=== PATIENT | male | born 1975 | race Caucasian/White ===

== ENCOUNTER 2016-10-02 12:00 | Inpatient (IN) | payer OTHER ==
--- NOTE | ~2016-10-02 | HP ---
Unit #: [id number] #: [id number] Patient: CALIN MULLINS [id number] [place] [address] [id number] MR#: [id number] NAME: CALIN MULLINS. ROOM: P209 Age: 41 Sex: M Admission Date: 10/02/2016 : 1975 Attending Physician: Oj Knight M.D. Admitting Physician: Oj Knight M.D. Primary Care Physician: Primary Care Physician No HISTORY AND PHYSICAL HISTORY OF PRESENT ILLNESS Calin is a 41 year old admitted to [address] [place] [address] because of his continued drug use. He shoots heroin. He has had other admissions to this facility for the same. PAST MEDICAL HISTORY 1. Long history of polysubstance abuse to include IV heroin. 2. Hepatitis C. 3. Peripheral neuropathy. 4. History of compartment syndrome, bilateral legs, 2007. He has bilateral foot drop and is supposed to wear a brace on his left ankle. His right ankle is fused. PAST SURGICAL HISTORY 1. Fractured right lower leg with ORIF. 2. Bilateral lower extremity fasciotomy. ALLERGIES No known drug allergies. SOCIAL HISTORY He does not smoke or drink and admits to a long history of opioid abuse to include IV heroin. FAMILY HISTORY Medically noncontributory. REVIEW OF SYSTEMS CONSTITUTIONAL: No fever or chills. HEENT: Denies any sore throat, ear pain or runny nose. CARDIOVASCULAR: Denies chest pain, irregular heart rhythm or palpitations. CHEST: Denies shortness of breath or cough. No hemoptysis. GASTROINTESTINAL: Denies nausea, vomiting, diarrhea or chronic constipation. ENDOCRINE: Denies history of increased thirst or urination. No recent significant weight loss or gain. GENITOURINARY: Denies dysuria, frequency, or hematuria. SKIN: Denies any rashes. HEMATOLOGIC: Denies history of increased bleeding or bruising. MUSCULOSKELETAL: He reports chronic lower extremity pain. NEUROLOGIC: Denies problems with vision or speech. No frequent, severe headaches. No numbness, tingling or weakness in any extremities. Denies Unit #: [id number] #: [id number] Patient: CALIN MULLINS loss of bladder or bowel control. CURRENT MEDICATIONS Detox protocol PHYSICAL EXAMINATION GENERAL: Alert, well-nourished, in no apparent distress. VITAL SIGNS: Blood pressure 122/80, heart rate 80, respirations 16, temperature 98.6. WEIGHT: 165 pounds. HEIGHT: 5'10". SKIN: Warm and dry without rash or lesion. HEENT: Normocephalic. TMs not viewed. Oral and nasal passages clear. Conjunctivae clear. Pupils equal, round and reactive to light and accommodation. Extraocular movements intact. NECK: Supple without lymphadenopathy or thyromegaly. HEART: Regular rate and rhythm without murmur. LUNGS: Clear. ABDOMEN: Soft, nontender. : Not done. EXTREMITIES: No evidence of cyanosis, clubbing or edema. Moves all extremities but the right ankle is surgically fused. He has a left foot drop. He does not have a brace with him at this time. NEUROLOGICAL: Grossly within normal limits. Cranial Nerves: II: Visual idggs are intact. III, IV AND : Extraocular movements are intact. Pupils are equal, round and reactive to light. V: Facial sensation is grossly normal. VII: Facial movements and expression are normal. VIII: Auditory acuity grossly intact. IX, X: Uvula is midline. Phonation is normal. XI: Patient shrugs shoulders and turns head normally. XII: Tongue protrudes in the midline. Sensory and Motor Function: Sensory is grossly normal. Left lower extremity with foot drop. Right lower extremity, ankle is surgically fixed. Coordination: Gait is normal. Deep Tendon Reflexes: Intact. IMPRESSION Psychiatric admission RECOMMENDATIONS PSYCHIATRIC: Per psychiatrist. MEDICAL: I see no contraindications to participating in facility's activities. MEDICAL PROGNOSIS Good. MEDICAL CONDITION Stable. Dictated by... Racquel Sierra P.A.-C. for Lynsey Flores M.D. Unit #: [id number] #: [id number] Patient: CALIN MULLINS ADA/jason TD: 10/02/2016 22:01 JOB #: [id number] HISTORY AND PHYSICAL Page 1 of 1 X Racquel Sierra HISTORY AND PHYSICAL
--- NOTE | ~2016-10-02 | PA ---
Unit #: [id number] #: [id number] Patient: TORSTEN MULLINS [id number] [facility] [address] [place] [address] [id number] MR#: [id number] NAME: TORSTEN MULLINS. ROOM: P209 Age: 41 Sex: M Admission Date: 10/02/2016 : 1975 Date of Assessment: 10/03/2016 Attending Physician: Oj Knight M.D. Admitting Physician: Oj Knight M.D. Primary Care Physician: Primary Care Physician No PSYCHIATRIC ASSESSMENT DATE OF SERVICE 10/03/2016. INFORMANTS The patient reliable; OLOP, reliable. CHIEF COMPLAINT Heroin abuse. HISTORY OF PRESENT ILLNESS Mr. Mullins is a 41-year-old man with a history of heroin abuse and multiple injuries including neuropathy and compartment syndrome. He was unable to tolerate detox in the outpatient setting and was admitted for stabilization. PAST PSYCHIATRIC HISTORY Previous admission here in 2013 and he has been admitted to substance abuse programs while incarcerated. FAMILY PSYCHIATRIC HISTORY There is a vague family history of mental illness. SOCIAL HISTORY The patient is on disability for his long-term medical problems. He has had multiple surgeries and has had difficulty maintaining a residence and employment. PAST MEDICAL HISTORY Significant for compartment syndrome, hypertension, history of sleep apnea, history of coronary artery disease. MEDICATIONS Please see MAR. ALLERGIES No known medication allergies. SUBSTANCE ABUSE HISTORY As noted. The patient has extensive history of alcohol dependence and heroin abuse and shooting heroin at this time. MENTAL STATUS EXAMINATION The patient is a mildly disheveled man who appeared his stated age. He Unit #: [id number] #: [id number] Patient: TORSTEN MULLINS was cooperative with the examination. His speech was spontaneous and easily understood. His musculoskeletal examination was calm. His mood was irritable with a congruent affect. He was alert and fully oriented. His memory and concentration were fair. His thought processes were goal directed with no active psychosis. He denied suicidal ideation, intent, or plan. Denied homicidal ideation. Insight and judgment, fair. Fund of knowledge and abstraction, fair. ASSETS AND LIABILITIES Assets; the patient knows local resources and presents voluntarily for treatment. Liabilities; include difficulty maintaining sobriety and arousing erratic housing and income. ADMITTING DIAGNOSES AXIS I: Alcohol dependence; opioid dependence. AXIS II: No diagnosis. AXIS III: Hepatitis C, peripheral neuropathy, bilateral compartment syndrome. AXIS IV: AXIS V: PSYCHIATRIC PLAN The patient was admitted and placed on the alcohol detox protocol with the addition of Neurontin as needed and as taken at home. His home medications will be explored and restarted. He will enroll in dual diagnosis groups and activities. TREATMENT GOALS Establishment of sobriety, improvement in insight, and improvement in coping skills. DISCHARGE PLANNING Follow up with [facility]. ESTIMATED LENGTH OF STAY 5 days. Dictated by... Oj Knight M.D. FILIBERTO/valeria TD: 10/23/2016 12:53 JOB #: [id number] PSYCHIATRIC ASSESSMENT Page 1 of 1 X Oj Knight MD X PSYCHIATRIC ASSESSMENT
--- NOTE | ~2016-10-02 | DS ---
Unit #: [id number] #: [id number] Patient: TORSTEN MULLINS [id number] [facility] [address] [place] [address] [id number] MR#: [id number] NAME: TORSTEN MULLINS. ROOM: P209 Age: 41 Sex: M Admission Date: 10/02/2016 : 1975 Discharge Date: 10/04/2016 Attending Physician: Oj Knight M.D. Primary Care Physician: Primary Care Physician No DISCHARGE SUMMARY REASON FOR ADMISSION Mr. Mullins is a 41-year-old man who came in reporting ongoing substance abuse including heroin and alcohol. He had no suicidal ideation, intent or plan and was admitted for stabilization. LABORATORY Please see hospital chart. HOSPITAL COURSE Patient was admitted and placed on the alcohol detox protocol. Home medications were also restarted. The patient was dissatisfied with the inpatient milieu, and after for 36 hours in the hospital, he requested discharge against medical advice after hours. He was seen by the social security assessor and the mill house supervisor who agreed that he was able to give reliable contract for safety and he was discharged against medical advice at his request. DISCHARGE DIAGNOSIS AXIS I: Axilla alcohol dependence, opiate dependence mood disorder NOS. AXIS II: No diagnosis. AXIS III: Hepatitis C compartment syndrome, chronic pain. DISCHARGE INSTRUCTIONS Follow up with primary care physician in chemical dependence programming in the community. DISCHARGE MEDICATIONS None. CONDITION ON DISCHARGE Fair. PROGNOSIS Fair to good DISCHARGE DIET/ACTIVITY Ad ayleen Dictated by... Oj Knight M.D. [facility]/to Unit #: [id number] #: [id number] Patient: TORSTEN MULLINS TD: 10/25/2016 21:51 JOB #: [id number] DISCHARGE SUMMARY Page 1 of 1 X Oj Knight MD X DISCHARGE SUMMARY
[~2016-10-02 12:00] MED LIST: ACETAMINOPHEN PO; ATIVAN PO; CLONIDINE PO; DOC-Q-LACE100 MG; EFFEXOR75 MG; FLEXERIL; FLEXERIL PO; FLEXERIL10 MG; LORTAB 7.5-5001 TAB PO; MELOXICAM15 MG DOB; MOBIC PO; MOTRIN600 MG PO; NEURONTIN800 MG; NEURONTIN800 MG DOB; NORCO 7.5-3251 EACH PO; NORCO 7.5/325 T1 TAB PO; TOPROL XL PO; VICODIN; VICODIN PO; XENADERM OINTMENT TOP; ZITHROMAX PO; ZYVOX600 MG PO
[2016-10-03 09:45] LABS: BASOPHIL% 0.7 % (0-2.5); EOSINOPHIL# 0.1 X10e3 (0-0.7); EOSINOPHIL% 1.9 % (0.0-7.0); HEMATOCRIT 48.9 % (38.0-50.0); HEMOGLOBIN 16.2 gm/dL (13.0-16.0); LYMPHOCYTE# 2.2 X10e3 (1.0-3.5); LYMPHOCYTE% 31.5 % (17.0-45.0); MEAN CELL VOLUME 89.3 FL (83-96); MEAN CORPUSCULAR HEMOGLOBIN 29.5 PG (28-34); MEAN CORPUSCULAR HGB CONC 33.1 g/dL (30-36); MEAN PLATELET VOLUME 9.4 FL (6.5-11.5); MONOCYTE# 0.5 X10e3 (0-1.0); MONOCYTE% 7.6 % (3.0-12.0); NEUTROPHIL% 58.3 % (40-75); PLATELET COUNT 204 X10e3 (140-420); RED BLOOD COUNT 5.47 X10e (3.90-5.60); RED CELL DISTRIBUTION WIDTH 12.2 % (11.0-15.5); WHITE BLOOD COUNT 6.9 X10e3 (4.0-10.5)
[2016-10-03 09:46] LABS: URINE APPEARANCE CLEAR; URINE BILIRUBIN NEG (NEG); URINE BLOOD NEG (NEG); URINE COLOR DK YELLOW; URINE GLUCOSE NEG (NEG); URINE KETONE NEG (NEG); URINE LEUKOCYTE ESTERASE 2+ (NEG); URINE NITRATE NEG (NEG); URINE PROTEIN NEG (NEG); URINE SPECIFIC GRAVITY 1.021 (1.003-1.035)
[2016-10-03 09:48] LABS: URBCS1 AUWI 0-2 /[HPF] (0-2); URINE BACTERIA AUWI NEG (NEGATIVE); URINE SQUAMOUS EPITHELIAL CELL NONE SEEN /[HPF]
[2016-10-03 09:49] LABS: DIFF IND NO
[2016-10-03 10:01] LABS: ALBUMIN SERUM 3.7 g/dL (3.5-5.0); BUN/CREATININE RATIO 12.22; CALCIUM SERUM 8.9 mg/dL (8.4-10.2); CREATININE SERUM 0.9 mg/dL (0.6-1.4); GLOM FILT RATE Estimated 105.7 mL/min (>60); POTASSIUM 4.6 mmol/L (3.5-5.1); PROTEIN TOTAL SERUM 6.3 g/dL (6.0-8.3)
[2016-10-03 10:19] LABS: AMPHETAMINE POS (NEG); BARBITURATES NEG (NEG); BENZODIAZEPINES NEG (NEG); COCAINE NEG (NEG); MARIJUANA POS (NEG); OPIATES NEG (NEG); TRICYCLIC ANTIDEPRESSANTS NEG (NEG); U METHADONE NEG (NEG)
== END 2016-10-04 16:40 | disposition left against medical advice (07) | DRG 894 ==
LOC: P2S 14:42
PROVIDERS: Psychiatry & Neurology Psychiatry
PROC: HZ2ZZZZ Detoxification Services for Substance Abuse Treatment (ICD-10-PCS; principal; 2016-10-02)
DX: F11.20 Opioid dependence, uncomplicated (principal); G62.9 Polyneuropathy, unspecified; F10.20 Alcohol dependence, uncomplicated; B19.20 Unspecified viral hepatitis C without hepatic coma; M21.372 Foot drop, left foot; M21.371 Foot drop, right foot
CPT/HCPCS: 80053; 80307; 81003; 85025